=== PATIENT | male | born 1950 | race Caucasian/White ===

== ENCOUNTER 2017-04-23 17:21 | Emergency (ER) | payer SELFPAY | END 2017-04-23 23:35 | disposition left against medical advice (07) | LOC: E/R 17:21 | DX: Z53.21 Procedure and treatment not carried out due to patient leaving prior to being seen by health care provider (principal) ==

== ENCOUNTER 2017-05-06 14:49 | Inpatient (IN) | payer MEDICARE ==
[2017-05-06 16:40] LABS: ADD MAN DIFF? NO
[2017-05-06 16:42] LABS: WHITE BLOOD COUNT 9.6 10^3/ul (4.8-10.8)
[2017-05-06 16:42] LABS: BASOPHILS % 0.2 % (0.0-2.0); EOSINOPHILS % 0.3 % (0.0-7.0); HEMATOCRIT 21.7 % (42.0-52.0); HEMOGLOBIN 7.3 g/dl (14.0-18.0); LYMPHOCYTES # 1.1 10^3/ul (0.8-2.9); LYMPHOCYTES % 10.9 % (15.0-51.0); MEAN CORPUSCULAR HEMOGLOBIN 30.4 pg (29.0-33.0); MEAN CORPUSCULAR HGB CONC 33.6 g/dl (32.0-37.0); MEAN CORPUSCULAR VOLUME 90.4 fl (82.0-101.0); MEAN PLATELET VOLUME 9.5 fl (7.4-10.4); MONOCYTE # 0.6 10^3/ul (0.3-0.9); MONOCYTES % 6.3 % (0.0-11.0); NEUTROPHIL # 7.9 10^3/ul (1.6-7.5); NEUTROPHILS % 81.9 % (39.0-77.0); PLATELET COUNT 258 10^3/UL (140-415); RED CELL DISTRIBUTION WIDTH 12.2 % (11.5-14.5)
[2017-05-06 17:03] LABS: INR 0.92; PROTIME 12.4 Sec (11.9-14.9)
[2017-05-06 17:14] LABS: ALANINE AMINOTRANSFERASE 29 IU/L (13-69); ALBUMIN 4.5 g/dl (3.3-4.9); ALBUMIN/GLOBULIN RATIO 1.21; ALKALINE PHOSPHATASE 61 IU/L (42-121); ANION GAP 18 (8-16); ASPARTATE AMINO TRANSFERASE 27 IU/L (15-46); BLOOD UREA NITROGEN 39 mg/dl (7-20); CALCIUM 9.8 mg/dl (8.4-10.2); CARBON DIOXIDE 24 mmol/L (21-31); CHLORIDE 103 mmol/L (97-110); CREATININE 2.46 mg/dl (0.61-1.24); GLUCOSE 196 mg/dl (70-220); LIPASE 337 U/L (23-300); POTASSIUM 5.2 mmol/L (3.5-5.1); SODIUM 140 mmol/L (135-144); TOTAL PROTEIN 8.2 g/dl (6.1-8.1)
[2017-05-06 18:57] LABS: ADD UMIC YES; UR ASCORBIC ACID NEGATIVE (NEGATIVE); UR BACTERIA FEW /HPF (NONE SEEN); UR BILIRUBIN (Dip) NEGATIVE (NEGATIVE); UR BLOOD (Dip) 3+ mg/dL (NEGATIVE); UR COLOR RED (YELLOW); UR GLUCOSE (Dip) 2+ mg/dL (NEGATIVE); UR KETONES (Dip) NEGATIVE (NEGATIVE); UR LEUKOCYTE ESTERASE (Dip) NEGATIVE Leu/ul (NEGATIVE); UR NITRITE (Dip) NEGATIVE (NEGATIVE); UR RBC > 182 /HPF (0-5); UR SPECIFIC GRAVITY (Dip) 1.013 (1.003-1.030); UR TOTAL PROTEIN (Dip) 2+ mg/dl (NEGATIVE); UR UROBILINOGEN (Dip) NEGATIVE (NEGATIVE); UR WBC > 182 /HPF (0-5)
[2017-05-06 19:02] LABS: UR CLARITY BLOODY (CLEAR)
[2017-05-06] MEDS ORDERED: morphine 2 MG INJ IV (21:00)
[2017-05-06] MEDS ORDERED: NACL 0.9% 3 ML SYG IV (21:00)
[2017-05-06] MEDS: INSULIN ASPART [NOVOLOG] 3 ML PEN SC (21:00)
[2017-05-06] MEDS ORDERED: ONDANSETRON 4 MG INJ IV (21:00)
[2017-05-06] MEDS ORDERED: ACETAMINOPHEN 325 MG TAB PO (21:00)
[2017-05-06] MEDS ORDERED: GLUCAGON 1 MG INJ IM (21:30)
[2017-05-06] MEDS ORDERED: GLUCOSE GEL 15 GRAM TUBE PO ×2 (21:30)
[2017-05-06] MEDS ORDERED: GLUCOSE GEL 15 GRAM TUBE BUCCAL (21:30)
[2017-05-06] MEDS ORDERED: DEXTROSE 50% 50 ML SYRINGE IV ×2 (21:30)
[2017-05-06] MEDS: SOD CHLORIDE 0.9% 1,000 ML IV (23:07)
[2017-05-07] MEDS: ACCU-CHEK XX (02:00)
[2017-05-07 04:49] LABS: ADD MAN DIFF? NO
[2017-05-07 04:52] LABS: BASOPHILS % 0.3 % (0.0-2.0); EOSINOPHILS # 0.3 10^3/ul (0.0-0.5); EOSINOPHILS % 2.9 % (0.0-7.0); HEMATOCRIT 21.8 % (42.0-52.0); HEMOGLOBIN 7.3 g/dl (14.0-18.0); LYMPHOCYTES # 1.6 10^3/ul (0.8-2.9); LYMPHOCYTES % 16.8 % (15.0-51.0); MEAN CORPUSCULAR HGB CONC 33.5 g/dl (32.0-37.0); MEAN CORPUSCULAR VOLUME 89.7 fl (82.0-101.0); MEAN PLATELET VOLUME 9.9 fl (7.4-10.4); MONOCYTE # 0.8 10^3/ul (0.3-0.9); MONOCYTES % 8.8 % (0.0-11.0); NEUTROPHIL # 6.6 10^3/ul (1.6-7.5); NEUTROPHILS % 70.9 % (39.0-77.0); PLATELET COUNT 233 10^3/UL (140-415); RED BLOOD COUNT 2.43 10^6/ul (4.70-6.10); RED CELL DISTRIBUTION WIDTH 12.5 % (11.5-14.5)
[2017-05-07 04:52] LABS: WHITE BLOOD COUNT 9.3 10^3/ul (4.8-10.8)
[2017-05-07 05:37] LABS: ALANINE AMINOTRANSFERASE 27 IU/L (13-69); ALBUMIN 3.8 g/dl (3.3-4.9); ALBUMIN/GLOBULIN RATIO 1.22; ALKALINE PHOSPHATASE 52 IU/L (42-121); ANION GAP 16 (8-16); ASPARTATE AMINO TRANSFERASE 15 IU/L (15-46); BILIRUBIN,INDIRECT 0.4 mg/dl (0-1.1); BILIRUBIN,TOTAL 0.4 mg/dl (0.2-1.3); BLOOD UREA NITROGEN 34 mg/dl (7-20); CALCIUM 9.3 mg/dl (8.4-10.2); CARBON DIOXIDE 25 mmol/L (21-31); CHLORIDE 105 mmol/L (97-110); CHOL/HDL RATIO 2.3 RATIO; CHOLESTEROL 81 mg/dl (100-200); CREATININE 2.25 mg/dl (0.61-1.24); GLUCOSE 162 mg/dl (70-220); HDL CHOLESTEROL 35 mg/dl (30-78); LDL CHOLESTEROL,CALCULATED 26 mg/dl; MAGNESIUM 1.6 mg/dl (1.7-2.5); POTASSIUM 4.5 mmol/L (3.5-5.1); SODIUM 141 mmol/L (135-144); TOTAL PROTEIN 6.9 g/dl (6.1-8.1); TRIGLYCERIDES 100 mg/dl (0-149)
[2017-05-07 06:50] LABS: IRON 41 ug/dl (35-150)
[2017-05-07 06:59] LABS: % IRON SATURATION 16 % SAT (22-52); TOTAL IRON BINDING CAPACITY 251 ug/dl (241-421)
[2017-05-07 07:24] LABS: HEMOGLOBIN A1C 6.2 % (0-5.9)
[2017-05-07] MEDS: INSULIN ASPART [NOVOLOG] 3 ML PEN SC ×4 (08:53→21:00)
[2017-05-07] MEDS: AMLODIPINE 10 MG TAB PO (08:54)
[2017-05-07] MEDS: SOD CHLORIDE 0.9% 1,000 ML IV (11:09)
[2017-05-07 12:30] LABS: ADD MAN DIFF? NO
[2017-05-07 12:33] LABS: ABNORMAL IP MESSAGE 1; BASOPHILS % 0.1 % (0.0-2.0); EOSINOPHILS # 0.1 10^3/ul (0.0-0.5); EOSINOPHILS % 0.6 % (0.0-7.0); HEMATOCRIT 20.2 % (42.0-52.0); LYMPHOCYTES # 1.1 10^3/ul (0.8-2.9); LYMPHOCYTES % 13.9 % (15.0-51.0); MEAN CORPUSCULAR HEMOGLOBIN 30.2 pg (29.0-33.0); MEAN CORPUSCULAR HGB CONC 33.7 g/dl (32.0-37.0); MEAN CORPUSCULAR VOLUME 89.8 fl (82.0-101.0); MEAN PLATELET VOLUME 10.1 fl (7.4-10.4); MONOCYTE # 0.6 10^3/ul (0.3-0.9); MONOCYTES % 7.5 % (0.0-11.0); NEUTROPHILS % 77.5 % (39.0-77.0); PLATELET COUNT 237 10^3/UL (140-415); POSITIVE DIFF @See below; RED BLOOD COUNT 2.25 10^6/ul (4.70-6.10); RED CELL DISTRIBUTION WIDTH 12.5 % (11.5-14.5)
[2017-05-07 12:33] LABS: WHITE BLOOD COUNT 7.8 10^3/ul (4.8-10.8)
[2017-05-07 12:44] LABS: HEMOGLOBIN 6.8 g/dl (14.0-18.0); PATH REVIEW? YES
[2017-05-07 13:12] LABS: ANISOCYTOSIS 1+ (0-0); EOSINOPHILS % (M) 1 % (0-7); LYMPHOCYTES #M 1.8 10^3/ul (0.8-2.9); LYMPHOCYTES % (M) 24 % (15-51); MICROCYTOSIS 1+ (0-0); MONOCYTE #M 0.3 10^3/ul (0.3-0.9); MONOCYTES % (M) 4 % (0-11); PLATELET ESTIMATE NORMAL; POLYCHROMASIA 1+ (0-0); SEGMENTED NEUTROPHILS (M) % 71 % (39-77); SMUDGE%M 9 % (0-0)
[2017-05-07 14:05] LABS: IMMEDIATE SPIN CROSSMATCH 1 3
[2017-05-07 16:21] LABS: RETICULOCYTE COUNT # 0.022 X10^6 (0.020-0.110)
[2017-05-07 16:21] LABS: RETICULOCYTE RBC 2.25
[2017-05-07 17:46] LABS: FOLATE 17.3 ng/ml (2.8-20.0)
[2017-05-07] MEDS: MAGNESIUM SULFATE 2 GM/50 ML 50 ML IVPB (18:02)
[2017-05-07 20:24] LABS: ADD MAN DIFF? NO
[2017-05-07 20:30] LABS: BASOPHILS % 0.3 % (0.0-2.0); EOSINOPHILS # 0.2 10^3/ul (0.0-0.5); HEMATOCRIT 23.2 % (42.0-52.0); HEMOGLOBIN 7.9 g/dl (14.0-18.0); LYMPHOCYTES # 1.5 10^3/ul (0.8-2.9); LYMPHOCYTES % 14.7 % (15.0-51.0); MEAN CORPUSCULAR HEMOGLOBIN 30.5 pg (29.0-33.0); MEAN CORPUSCULAR HGB CONC 34.1 g/dl (32.0-37.0); MEAN CORPUSCULAR VOLUME 89.6 fl (82.0-101.0); MEAN PLATELET VOLUME 10.1 fl (7.4-10.4); MONOCYTE # 0.8 10^3/ul (0.3-0.9); MONOCYTES % 8.1 % (0.0-11.0); NEUTROPHIL # 7.4 10^3/ul (1.6-7.5); NEUTROPHILS % 74.6 % (39.0-77.0); PLATELET COUNT 216 10^3/UL (140-415); RED BLOOD COUNT 2.59 10^6/ul (4.70-6.10); RED CELL DISTRIBUTION WIDTH 12.6 % (11.5-14.5)
[2017-05-07 20:30] LABS: WHITE BLOOD COUNT 9.9 10^3/ul (4.8-10.8)
[2017-05-07 20:31] LABS: OCCULT BLOOD STOOL NEGATIVE (NEGATIVE)
[2017-05-07] MEDS: DOCUSATE SODIUM 100 MG CAP PO (20:55)
[2017-05-07] MEDS: ATORVASTATIN 40 MG TAB PO (20:55)
[2017-05-08] MEDS: SOD CHLORIDE 0.9% 1,000 ML IV ×3 (00:03→15:44)
[2017-05-08] MEDS: ACCU-CHEK XX (02:01)
[2017-05-08 04:03] LABS: HEMATOCRIT 22.7 % (42.0-52.0); HEMOGLOBIN 7.8 g/dl (14.0-18.0)
[2017-05-08 04:10] LABS: ANION GAP 12 (8-16); BLOOD UREA NITROGEN 37 mg/dl (7-20); CALCIUM 8.9 mg/dl (8.4-10.2); CARBON DIOXIDE 25 mmol/L (21-31); CHLORIDE 104 mmol/L (97-110); CREATININE 2.31 mg/dl (0.61-1.24); GLUCOSE 134 mg/dl (70-220); MAGNESIUM 2.1 mg/dl (1.7-2.5); PHOSPHORUS 4.2 mg/dl (2.5-4.9); POTASSIUM 4.2 mmol/L (3.5-5.1); SODIUM 137 mmol/L (135-144)
[2017-05-08] MEDS: INSULIN ASPART [NOVOLOG] 3 ML PEN SC ×4 (08:31→21:00)
[2017-05-08] MEDS: DOCUSATE SODIUM 100 MG CAP PO ×2 (08:48→21:20)
[2017-05-08] MEDS: AMLODIPINE 10 MG TAB PO (08:49)
[2017-05-08] MEDS: FINASTERIDE 5 MG TAB PO (10:30)
[2017-05-08 11:54] LABS: HEMATOCRIT 21.9 % (42.0-52.0); HEMOGLOBIN 7.4 g/dl (14.0-18.0)
[2017-05-08 18:02] LABS: LACTATE DEHYDROGENASE 401 IU/L (313-618)
[2017-05-08 18:59] LABS: HEMATOCRIT 21.3 % (42.0-52.0); HEMOGLOBIN 7.5 g/dl (14.0-18.0)
[2017-05-08] MEDS: ATORVASTATIN 40 MG TAB PO (21:20)
[2017-05-08] MEDS: TAMSULOSIN (SR) 0.4 MG CAP PO (21:20)
[2017-05-09] MEDS: ACCU-CHEK XX (01:38)
[2017-05-09 02:48] LABS: HEMATOCRIT 20.7 % (42.0-52.0); HEMOGLOBIN 7.2 g/dl (14.0-18.0)
[2017-05-09 03:12] LABS: ANION GAP 13 (8-16); BLOOD UREA NITROGEN 40 mg/dl (7-20); CALCIUM 8.5 mg/dl (8.4-10.2); CARBON DIOXIDE 25 mmol/L (21-31); CHLORIDE 107 mmol/L (97-110); CREATININE 1.96 mg/dl (0.61-1.24); GLUCOSE 165 mg/dl (70-220); MAGNESIUM 1.7 mg/dl (1.7-2.5); PHOSPHORUS 3.5 mg/dl (2.5-4.9); POTASSIUM 4.1 mmol/L (3.5-5.1); SODIUM 141 mmol/L (135-144)
[2017-05-09] MEDS: SOD CHLORIDE 0.9% 1,000 ML IV ×3 (05:19→21:03)
[2017-05-09] MEDS: FINASTERIDE 5 MG TAB PO (08:06)
[2017-05-09] MEDS: DOCUSATE SODIUM 100 MG CAP PO ×2 (08:06→20:38)
[2017-05-09] MEDS: AMLODIPINE 10 MG TAB PO (08:06)
[2017-05-09] MEDS: INSULIN ASPART [NOVOLOG] 3 ML PEN SC ×4 (08:29→20:45)
[2017-05-09 12:29] LABS: HEMATOCRIT 21.3 % (42.0-52.0); HEMOGLOBIN 7.2 g/dl (14.0-18.0)
[2017-05-09 19:23] LABS: HEMATOCRIT 23.3 % (42.0-52.0)
[2017-05-09] MEDS: ATORVASTATIN 40 MG TAB PO (20:38)
[2017-05-09] MEDS: TAMSULOSIN (SR) 0.4 MG CAP PO (20:38)
[2017-05-10] MEDS: ACCU-CHEK XX (02:02)
[2017-05-10] MEDS: DOCUSATE SODIUM 100 MG CAP PO ×2 (07:48→20:42)
[2017-05-10] MEDS: FINASTERIDE 5 MG TAB PO (07:48)
[2017-05-10] MEDS: AMLODIPINE 10 MG TAB PO (07:49)
[2017-05-10] MEDS: INSULIN ASPART [NOVOLOG] 3 ML PEN SC ×4 (07:51→20:46)
[2017-05-10] MEDS: SOD CHLORIDE 0.9% 1,000 ML IV (09:56)
[2017-05-10 15:47] LABS: PATH REVIEW CH
[2017-05-10 19:57] LABS: PSA, FREE 2.3 ng/mL
[2017-05-10] MEDS: ATORVASTATIN 40 MG TAB PO (20:41)
[2017-05-10] MEDS: TAMSULOSIN (SR) 0.4 MG CAP PO (20:42)
[2017-05-11] MEDS: SOD CHLORIDE 0.9% 1,000 ML IV ×2 (00:11→15:15)
[2017-05-11] MEDS: ACCU-CHEK XX (02:09)
[2017-05-11] MEDS: DOCUSATE SODIUM 100 MG CAP PO ×2 (08:08→20:43)
[2017-05-11] MEDS: AMLODIPINE 10 MG TAB PO (08:09)
[2017-05-11] MEDS: FINASTERIDE 5 MG TAB PO (08:09)
[2017-05-11] MEDS: INSULIN ASPART [NOVOLOG] 3 ML PEN SC ×4 (08:11→20:44)
[2017-05-11 11:14] LABS: ADD MAN DIFF? NO
[2017-05-11 11:24] LABS: ANION GAP 14 (8-16); BLOOD UREA NITROGEN 38 mg/dl (7-20); CARBON DIOXIDE 25 mmol/L (21-31); CHLORIDE 102 mmol/L (97-110); CREATININE 1.67 mg/dl (0.61-1.24); SODIUM 137 mmol/L (135-144)
[2017-05-11 11:31] LABS: BASOPHILS % 0.2 % (0.0-2.0); EOSINOPHILS # 0.1 10^3/ul (0.0-0.5); EOSINOPHILS % 0.9 % (0.0-7.0); HEMATOCRIT 24.1 % (42.0-52.0); HEMOGLOBIN 8.2 g/dl (14.0-18.0); LYMPHOCYTES # 1.1 10^3/ul (0.8-2.9); LYMPHOCYTES % 13.8 % (15.0-51.0); MEAN CORPUSCULAR HEMOGLOBIN 30.8 pg (29.0-33.0); MEAN CORPUSCULAR VOLUME 90.6 fl (82.0-101.0); MONOCYTE # 0.6 10^3/ul (0.3-0.9); MONOCYTES % 6.9 % (0.0-11.0); NEUTROPHIL # 6.4 10^3/ul (1.6-7.5); PLATELET COUNT 266 10^3/UL (140-415); RED BLOOD COUNT 2.66 10^6/ul (4.70-6.10); RED CELL DISTRIBUTION WIDTH 12.8 % (11.5-14.5)
[2017-05-11 11:31] LABS: WHITE BLOOD COUNT 8.2 10^3/ul (4.8-10.8)
[2017-05-11 11:40] LABS: GLUCOSE 409 mg/dl (70-220)
[2017-05-11 14:17] LABS: HAPTOGLOBIN 315 mg/dL (43-212)
[2017-05-11 19:30] LABS: INR 0.98; PROTIME 13.1 Sec (11.9-14.9)
[2017-05-11 19:31] LABS: PARTIAL THROMBOPLASTIN TIME 34.4 Sec (25.0-35.0)
[2017-05-11] MEDS: TAMSULOSIN (SR) 0.4 MG CAP PO (20:43)
[2017-05-11] MEDS: ATORVASTATIN 40 MG TAB PO (20:43)
[2017-05-12] MEDS: ACCU-CHEK XX (02:00)
[2017-05-12] MEDS: SOD CHLORIDE 0.9% 1,000 ML IV ×2 (06:35→21:05)
[2017-05-12] MEDS: DOCUSATE SODIUM 100 MG CAP PO ×2 (08:07→21:04)
[2017-05-12] MEDS: FINASTERIDE 5 MG TAB PO (08:07)
[2017-05-12] MEDS: AMLODIPINE 10 MG TAB PO (08:07)
[2017-05-12] MEDS: INSULIN ASPART [NOVOLOG] 3 ML PEN SC ×4 (08:10→21:03)
[2017-05-12 11:36] LABS: ADD MAN DIFF? NO
[2017-05-12 11:43] LABS: BASOPHILS % 0.2 % (0.0-2.0); EOSINOPHILS # 0.1 10^3/ul (0.0-0.5); EOSINOPHILS % 1.7 % (0.0-7.0); HEMATOCRIT 23.2 % (42.0-52.0); HEMOGLOBIN 7.8 g/dl (14.0-18.0); LYMPHOCYTES # 1.4 10^3/ul (0.8-2.9); LYMPHOCYTES % 17.2 % (15.0-51.0); MEAN CORPUSCULAR HEMOGLOBIN 30.2 pg (29.0-33.0); MEAN CORPUSCULAR HGB CONC 33.6 g/dl (32.0-37.0); MEAN CORPUSCULAR VOLUME 89.9 fl (82.0-101.0); MEAN PLATELET VOLUME 9.9 fl (7.4-10.4); MONOCYTE # 0.6 10^3/ul (0.3-0.9); MONOCYTES % 7.7 % (0.0-11.0); NEUTROPHIL # 5.9 10^3/ul (1.6-7.5); PLATELET COUNT 288 10^3/UL (140-415); RED BLOOD COUNT 2.58 10^6/ul (4.70-6.10); RED CELL DISTRIBUTION WIDTH 12.7 % (11.5-14.5)
[2017-05-12 11:43] LABS: WHITE BLOOD COUNT 8.1 10^3/ul (4.8-10.8)
[2017-05-12 12:06] LABS: ANION GAP 15 (8-16); BLOOD UREA NITROGEN 36 mg/dl (7-20); CALCIUM 8.7 mg/dl (8.4-10.2); CARBON DIOXIDE 25 mmol/L (21-31); CHLORIDE 103 mmol/L (97-110); CREATININE 1.68 mg/dl (0.61-1.24); GLUCOSE 290 mg/dl (70-220); SODIUM 139 mmol/L (135-144)
[2017-05-12] MEDS: ATORVASTATIN 40 MG TAB PO (21:04)
[2017-05-12] MEDS: TAMSULOSIN (SR) 0.4 MG CAP PO (21:04)
[2017-05-13] MEDS: ACCU-CHEK XX (02:00)
[2017-05-13 06:05] LABS: ADD MAN DIFF? NO
[2017-05-13 06:15] LABS: ABNORMAL IP MESSAGE 1; BASOPHILS % 0.3 % (0.0-2.0); EOSINOPHILS # 0.3 10^3/ul (0.0-0.5); EOSINOPHILS % 3.8 % (0.0-7.0); LYMPHOCYTES # 1.5 10^3/ul (0.8-2.9); LYMPHOCYTES % 20.6 % (15.0-51.0); MEAN CORPUSCULAR HEMOGLOBIN 30.8 pg (29.0-33.0); MEAN CORPUSCULAR VOLUME 90.5 fl (82.0-101.0); MEAN PLATELET VOLUME 9.6 fl (7.4-10.4); MONOCYTE # 0.7 10^3/ul (0.3-0.9); MONOCYTES % 9.2 % (0.0-11.0); NEUTROPHIL # 4.8 10^3/ul (1.6-7.5); NEUTROPHILS % 65.8 % (39.0-77.0); PLATELET COUNT 277 10^3/UL (140-415); POSITIVE DIFF @See below; RED BLOOD COUNT 2.21 10^6/ul (4.70-6.10); RED CELL DISTRIBUTION WIDTH 12.5 % (11.5-14.5)
[2017-05-13 06:15] LABS: WHITE BLOOD COUNT 7.3 10^3/ul (4.8-10.8)
[2017-05-13 06:34] LABS: ANION GAP 13 (8-16); BLOOD UREA NITROGEN 36 mg/dl (7-20); CALCIUM 8.4 mg/dl (8.4-10.2); CARBON DIOXIDE 25 mmol/L (21-31); CHLORIDE 108 mmol/L (97-110); CREATININE 1.52 mg/dl (0.61-1.24); GLUCOSE 158 mg/dl (70-220); HEMOGLOBIN 6.8 g/dl (14.0-18.0); POTASSIUM 4.3 mmol/L (3.5-5.1); SODIUM 142 mmol/L (135-144)
[2017-05-13] MEDS: INSULIN ASPART [NOVOLOG] 3 ML PEN SC ×4 (08:14→21:10)
[2017-05-13] MEDS: DOCUSATE SODIUM 100 MG CAP PO ×2 (08:52→21:04)
[2017-05-13] MEDS: FINASTERIDE 5 MG TAB PO (08:52)
[2017-05-13] MEDS: AMLODIPINE 10 MG TAB PO (08:53)
[2017-05-13] MEDS: SOD CHLORIDE 0.9% 1,000 ML IV (10:09)
[2017-05-13 11:48] LABS: IMMEDIATE SPIN CROSSMATCH 1 2
[2017-05-13] MEDS: ATORVASTATIN 40 MG TAB PO (21:04)
[2017-05-13] MEDS: TAMSULOSIN (SR) 0.4 MG CAP PO (21:04)
== END 2017-05-13 21:20 | disposition home or self-care (01) | DRG 699 ==
LOC: MS2 20:06 → E/R 14:49 → MS2 18:05
PROC: 30233N1 Transfusion of Nonautologous Red Blood Cells into Peripheral Vein, Percutaneous Approach (ICD-10-PCS; principal; 2017-05-07)
DX: N32.3 Diverticulum of bladder (principal); N13.8 Other obstructive and reflux uropathy; N17.9 Acute kidney failure, unspecified; E11.22 Type 2 diabetes mellitus with diabetic chronic kidney disease; N13.30 Unspecified hydronephrosis; N30.01 Acute cystitis with hematuria; N32.0 Bladder-neck obstruction; I12.9 Hypertensive chronic kidney disease with stage 1 through stage 4 chronic kidney disease, or unspecified chronic kidney disease; N18.9 Chronic kidney disease, unspecified; D63.1 Anemia in chronic kidney disease; E87.5 Hyperkalemia; E78.5 Hyperlipidemia, unspecified; R31.0 Gross hematuria; Z91.14 Patient's other noncompliance with medication regimen; R33.8 Other retention of urine
CPT/HCPCS: 36415; 36430; 74176; 76775; 80048; 80053; 80061; 81001; 82270; 82607; 82728; 82746; 82962; 83010; 83036; 83540; 83615; 83690; 83735; 84100; 84153; 84154; 84443; 85014; 85018; 85025; 85045; 85610; 85730; 86850; 86900; 86901; 86920; 87086; 99291-25

== ENCOUNTER 2017-05-19 10:53 | Emergency (ER) | payer OTHER, MEDICARE ==
[2017-05-19 13:11] LABS: URINE BLOOD (Dip) POC 2+ (NEGATIVE); URINE GLUCOSE (Dip) POC Negative (NEGATIVE); URINE KETONES (Dip) POC Negative (NEGATIVE); URINE LEUKOCYTE EST (Dip) POC 1+ (NEGATIVE); URINE NITRITE (Dip) POC Positive (NEGATIVE); URINE TOTAL PROTEIN POC Trace (NEGATIVE)
== END 2017-05-19 14:18 | disposition home or self-care (01) ==
LOC: FTE 10:53
DX: R33.9 Retention of urine, unspecified (principal); I10 Essential (primary) hypertension
CPT/HCPCS: 51702; 81003; 87086; 99283-25

== ENCOUNTER 2017-06-16 09:41 | Emergency (ER) | payer MEDICARE, OTHER ==
[2017-06-16 13:10] LABS: ADD MAN DIFF? NO
[2017-06-16 13:14] LABS: BASOPHILS % 0.4 % (0.0-2.0); EOSINOPHILS # 0.1 10^3/ul (0.0-0.5); EOSINOPHILS % 0.5 % (0.0-7.0); HEMATOCRIT 32.3 % (42.0-52.0); HEMOGLOBIN 10.8 g/dl (14.0-18.0); LYMPHOCYTES # 1.2 10^3/ul (0.8-2.9); LYMPHOCYTES % 10.5 % (15.0-51.0); MEAN CORPUSCULAR HEMOGLOBIN 30.2 pg (29.0-33.0); MEAN CORPUSCULAR HGB CONC 33.4 g/dl (32.0-37.0); MEAN CORPUSCULAR VOLUME 90.2 fl (82.0-101.0); MEAN PLATELET VOLUME 9.3 fl (7.4-10.4); MONOCYTE # 0.5 10^3/ul (0.3-0.9); MONOCYTES % 4.1 % (0.0-11.0); NEUTROPHIL # 9.2 10^3/ul (1.6-7.5); PLATELET COUNT 291 10^3/UL (140-415); RED BLOOD COUNT 3.58 10^6/ul (4.70-6.10); RED CELL DISTRIBUTION WIDTH 13.3 % (11.5-14.5)
[2017-06-16 13:14] LABS: WHITE BLOOD COUNT 10.9 10^3/ul (4.8-10.8)
[2017-06-16 13:17] LABS: ADD UMIC NO; UR ASCORBIC ACID 20 mg/dL (NEGATIVE); UR BILIRUBIN (Dip) NEGATIVE (NEGATIVE); UR BLOOD (Dip) NEGATIVE (NEGATIVE); UR CLARITY CLEAR (CLEAR); UR COLOR YELLOW (YELLOW); UR GLUCOSE (Dip) 3+ mg/dL (NEGATIVE); UR KETONES (Dip) NEGATIVE (NEGATIVE); UR LEUKOCYTE ESTERASE (Dip) NEGATIVE Leu/ul (NEGATIVE); UR NITRITE (Dip) NEGATIVE (NEGATIVE); UR SPECIFIC GRAVITY (Dip) 1.009 (1.003-1.030); UR TOTAL PROTEIN (Dip) NEGATIVE (NEGATIVE); UR UROBILINOGEN (Dip) NEGATIVE (NEGATIVE)
[2017-06-16 13:31] LABS: ANION GAP 17 (8-16); BLOOD UREA NITROGEN 25 mg/dl (7-20); CALCIUM 9.3 mg/dl (8.4-10.2); CARBON DIOXIDE 24 mmol/L (21-31); CHLORIDE 105 mmol/L (97-110); CREATININE 1.41 mg/dl (0.61-1.24); GLUCOSE 304 mg/dl (70-220); POTASSIUM 5.5 mmol/L (3.5-5.1); SODIUM 140 mmol/L (135-144)
[2017-06-16 14:35] LABS: POTASSIUM 6.2 mmol/L (3.5-5.1)
[2017-06-16] MEDS: DEXTROSE 50% 50 ML SYRINGE IV ×3 (15:05→15:25)
[2017-06-16] MEDS: INSULIN REGULAR, HUMAN 100 UNIT/1 ML 3ML VIAL IVP (15:06)
[2017-06-16] MEDS: ALBUTEROL 0.5% (NEB) 2.5 MG/0.5 ML AMP INH (15:14)
[2017-06-16] MEDS ORDERED: ONDANSETRON 4 MG INJ IV (16:30)
[2017-06-16] MEDS ORDERED: ACETAMINOPHEN 325 MG TAB PO (16:30)
[2017-06-16] MEDS ORDERED: NACL 0.9% 3 ML SYG IV (16:30)
[2017-06-16] MEDS ORDERED: GLUCOSE GEL 15 GRAM TUBE PO ×2 (17:00)
[2017-06-16] MEDS ORDERED: DEXTROSE 50% 50 ML SYRINGE IV ×2 (17:00)
[2017-06-16] MEDS ORDERED: GLUCAGON 1 MG INJ IM (17:00)
[2017-06-16] MEDS ORDERED: GLUCOSE GEL 15 GRAM TUBE BUCCAL (17:00)
[2017-06-16] MEDS ORDERED: INSULIN ASPART [NOVOLOG] 3 ML PEN SC (18:00)
[2017-06-16] MEDS ORDERED: ATORVASTATIN 40 MG TAB PO (21:00)
[2017-06-16] MEDS ORDERED: TAMSULOSIN (SR) 0.4 MG CAP PO (21:00)
[2017-06-16] MEDS ORDERED: DOCUSATE SODIUM 100 MG CAP PO (21:00)
[2017-06-17] MEDS ORDERED: ACCU-CHEK XX (02:00)
[2017-06-17] MEDS ORDERED: AMLODIPINE 10 MG TAB PO (09:00)
[2017-06-17] MEDS ORDERED: POLYETHYLENE GLYCOL 17 GM PACKET PO (09:00)
[2017-06-17] MEDS ORDERED: FINASTERIDE 5 MG TAB PO (09:00)
== END 2017-06-16 18:08 | disposition left against medical advice (07) ==
LOC: E/R 18:08
DX: R33.9 Retention of urine, unspecified (principal); E87.5 Hyperkalemia; I12.9 Hypertensive chronic kidney disease with stage 1 through stage 4 chronic kidney disease, or unspecified chronic kidney disease; N18.9 Chronic kidney disease, unspecified; E11.22 Type 2 diabetes mellitus with diabetic chronic kidney disease
CPT/HCPCS: 51702; 80048; 81003; 82962; 84132; 85025; 93005; 94664; 96374; 99291-25

== ENCOUNTER 2017-07-04 13:38 | Emergency (ER) | payer MEDICARE, OTHER ==
[2017-07-04 15:39] LABS: ADD UMIC YES; UR ASCORBIC ACID NEGATIVE (NEGATIVE); UR BILIRUBIN (Dip) NEGATIVE (NEGATIVE); UR BLOOD (Dip) 3+ mg/dL (NEGATIVE); UR CLARITY SLIGHTLY CLOUDY (CLEAR); UR COLOR RED (YELLOW); UR GLUCOSE (Dip) 3+ mg/dL (NEGATIVE); UR KETONES (Dip) NEGATIVE (NEGATIVE); UR LEUKOCYTE ESTERASE (Dip) NEGATIVE Leu/ul (NEGATIVE); UR NITRITE (Dip) NEGATIVE (NEGATIVE); UR RBC > 182 /HPF (0-5); UR SPECIFIC GRAVITY (Dip) 1.013 (1.003-1.030); UR TOTAL PROTEIN (Dip) 2+ mg/dl (NEGATIVE); UR UROBILINOGEN (Dip) NEGATIVE (NEGATIVE); UR WBC 11 /HPF (0-5)
== END 2017-07-04 16:02 | disposition home or self-care (01) ==
LOC: FTE 13:38
DX: R33.9 Retention of urine, unspecified (principal); I10 Essential (primary) hypertension; E11.9 Type 2 diabetes mellitus without complications; Z79.84 Long term (current) use of oral hypoglycemic drugs
CPT/HCPCS: 51702; 81001; 99283-25

== ENCOUNTER 2017-07-18 06:53 | Emergency (ER) | payer MEDICARE, OTHER ==
[2017-07-18 08:20] LABS: ADD UMIC YES; UR ASCORBIC ACID NEGATIVE (NEGATIVE); UR BILIRUBIN (Dip) NEGATIVE (NEGATIVE); UR BLOOD (Dip) 2+ mg/dL (NEGATIVE); UR CLARITY SLIGHTLY CLOUDY (CLEAR); UR COLOR YELLOW (YELLOW); UR GLUCOSE (Dip) 3+ mg/dL (NEGATIVE); UR KETONES (Dip) NEGATIVE (NEGATIVE); UR LEUKOCYTE ESTERASE (Dip) 1+ Leu/ul (NEGATIVE); UR NITRITE (Dip) NEGATIVE (NEGATIVE); UR RBC 46 /HPF (0-5); UR TOTAL PROTEIN (Dip) 1+ mg/dl (NEGATIVE); UR UROBILINOGEN (Dip) NEGATIVE (NEGATIVE); UR WBC 8 /HPF (0-5)
== END 2017-07-18 08:57 | disposition home or self-care (01) ==
LOC: FTE 06:53
DX: N39.0 Urinary tract infection, site not specified (principal); I10 Essential (primary) hypertension; E11.9 Type 2 diabetes mellitus without complications; Y73.8 Miscellaneous gastroenterology and urology devices associated with adverse incidents, not elsewhere classified; Z79.84 Long term (current) use of oral hypoglycemic drugs
CPT/HCPCS: 51702; 81001; 87086; 99283-25

== ENCOUNTER 2017-11-18 07:46 | Day surgery (SDC) | payer MEDICARE, OTHER ==
[~2017-11-18 07:46] MED LIST: CIPRO 400 MG/200 ML D5W IVPB; DEXAMETHASONE 4 MG/ML 1 ML INJ; ONDANSETRON 4 MG INJ
[2017-11-18] MEDS ORDERED: FENTAnyl 50 MCG/ML VIAL ×2 (09:39→11:51)
[2017-11-18] MEDS ORDERED: MIDAZOLAM 1 MG/ML 2 ML INJ (09:39)
[2017-11-18] MEDS ORDERED: METOCLOPRAMIDE 10 MG INJ (09:43)
[2017-11-18] MEDS ORDERED: SUCCINYLCHOLINE CHLORIDE 100 MG/5 ML SYG IV (09:45)
[2017-11-18] MEDS ORDERED: SUGAMMADEX SODIUM 200 MG/2 ML VIAL IV (09:45)
[2017-11-18] MEDS ORDERED: PROPOFOL 20 ML (09:45)
[2017-11-18] MEDS ORDERED: LIDOCAINE 2% (SDV) 5 ML INJ (09:45)
[2017-11-18] MEDS ORDERED: ROCURONIUM 50 MG INJ (09:45)
[2017-11-18] MEDS: CIPROFLOXACIN 400MG/D5W 200 ML IVPB (10:00)
[2017-11-18] MEDS ORDERED: ACETAMINOPHEN 1000MG/100ML IV 100 ML (11:51)
[2017-11-18] MEDS ORDERED: LABETALOL HCL 20MG INJ (11:52)
[2017-11-18] MEDS ORDERED: MEPERIDINE 25 MG INJ IV (13:00)
[2017-11-18] MEDS ORDERED: HYDROmorphONE 1 MG/5 ML IV SYRINGE IV ×3 (13:00)
[2017-11-18] MEDS ORDERED: DIPHENHYDRAMINE 50 MG INJ IV (13:00)
[2017-11-18] MEDS ORDERED: hydrALAzine 20 MG INJ IV (13:00)
[2017-11-18] MEDS ORDERED: IPRATROPIUM (NEB) 0.5 MG/2.5 ML AMP HHN (13:00)
[2017-11-18] MEDS ORDERED: HYDROCODONE/APAP (5/325) TAB PO (13:00)
[2017-11-18] MEDS ORDERED: LABETALOL HCL 20MG INJ IV (13:00)
[2017-11-18] MEDS ORDERED: ONDANSETRON 4 MG INJ IV (13:00)
[2017-11-18] MEDS ORDERED: MAGNESIUM HYDROXIDE 30ML CUP PO (13:00)
[2017-11-18] MEDS ORDERED: FENTAnyl 50 MCG/ML VIAL IV ×2 (13:00)
[2017-11-18] MEDS ORDERED: GLUCOSE GEL 15 GRAM TUBE BUCCAL (15:00)
[2017-11-18] MEDS ORDERED: DEXTROSE 50% 50 ML SYRINGE IV ×2 (15:00)
[2017-11-18] MEDS ORDERED: GLUCAGON 1 MG INJ IM (15:00)
[2017-11-18] MEDS ORDERED: GLUCOSE GEL 15 GRAM TUBE PO ×2 (15:00)
[2017-11-18] MEDS: DEXTROSE 5%-0.45% NACL 1,000 ML IV (16:14)
[2017-11-18] MEDS: INSULIN ASPART [NOVOLOG] 3 ML PEN SC ×2 (18:06→20:13)
[2017-11-18] MEDS: CIPROFLOXACIN 500 MG TAB PO (18:07)
[2017-11-18] MEDS: ATORVASTATIN 40 MG TAB PO (20:12)
[2017-11-18] MEDS: DOCUSATE SODIUM 100 MG CAP PO (20:12)
[2017-11-19] MEDS: ACCU-CHEK XX (01:11)
[2017-11-19] MEDS: CIPROFLOXACIN 500 MG TAB PO (06:04)
[2017-11-19] MEDS: DOCUSATE SODIUM 100 MG CAP PO (08:30)
[2017-11-19] MEDS: PIOGLITAZONE 30 MG TAB PO (08:30)
[2017-11-19] MEDS: LINAGLIPTIN 5 MG TABLET PO (08:30)
[2017-11-19] MEDS: INSULIN ASPART [NOVOLOG] 3 ML PEN SC ×2 (08:32→12:08)
[2017-11-19] MEDS: GLIMEPIRIDE 2 MG TAB PO (08:32)
[2017-11-19] MEDS: DEXTROSE 5%-0.45% NACL 1,000 ML IV (11:03)
== END 2017-11-19 14:45 | disposition home or self-care (01) ==
LOC: SDS 07:46 → REC 15:14 → SDS 12:55 → REC 12:56 → PP2 15:14 → SDS 11-19 14:45
DX: N13.8 Other obstructive and reflux uropathy (principal); I10 Essential (primary) hypertension; E11.9 Type 2 diabetes mellitus without complications; E78.5 Hyperlipidemia, unspecified; N40.1 Benign prostatic hyperplasia with lower urinary tract symptoms
CPT/HCPCS: 52601; 82962; 88305